=== PATIENT | female | born 1955 | race Caucasian/White ===

== ENCOUNTER 2024-11-11 15:30 | Outpatient (CLI) | payer MEDICARE, BC | END 2024-11-11 23:59 | disposition home or self-care (01) | LOC: RAD 15:30 | PROVIDERS: ATTEND Registered Nurse | DX: Z77.22 Contact with and (suspected) exposure to environmental tobacco smoke (acute) (chronic) (principal) | CPT/HCPCS: 71046 ==

== ENCOUNTER 2025-01-04 10:41 | Emergency (ER) | payer MEDICARE, BC ==
[~2025-01-04] VITALS: Ht 149.9 cm; Wt 82.0 kg
[2025-01-04 10:48] VITALS: TEMP 97.8
[2025-01-04] MEDS ORDERED: DOXY-1 PO (10:53)
[2025-01-04] MEDS: TETanus/Pertussis (Acell)/Diphther VAC/PF (Tdap-Adult) 0.5ml syringe IMVAC ONE (12:20)
[2025-01-04 12:42] VITALS: BP 155/89; PULSE 91; RESP 18; O2SAT 99
== END 2025-01-04 12:44 | disposition home or self-care (01) ==
LOC: ER 10:42
DX: S61.531A Puncture wound without foreign body of right wrist, initial encounter (principal); W55.01XA Bitten by cat, initial encounter; Y93.89 Activity, other specified; Y92.89 Other specified places as the place of occurrence of the external cause; Y99.8 Other external cause status
CPT/HCPCS: 90715; 99283; A6258; G0008; 90471